=== PATIENT | male | born 1970 | race Caucasian/White ===

== ENCOUNTER 2017-03-30 22:32 | Emergency (ER) | payer SELFPAY ==
[2017-03-30] MEDS ORDERED: HYDROmorphone 1 MG/ML Syringe IVPUSH ONE (22:57)
[2017-03-30] MEDS ORDERED: Sodium Chloride 0.9% 1,000 ML IV SCH (23:00)
--- NOTE | 2017-03-30 23:03 | EDM.PDOC ---
ED HPI GENERAL MEDICAL PROBLEM - General Chief Complaint: Chest Pain Stated Complaint: [facility] Time Seen by Provider: 03/30/17 22:47 Source of Information: Reports: Patient History Limitations: Reports: No Limitations - History of Present Illness INITIAL COMMENTS - FREE TEXT/NARRATIVE: This is a 47-year-old male. He was out this evening having some alcohol and was going to eat when he had onset of left upper abdominal pain and back pain. He states he feels like the pain is sharp and it goes from his abdomen through to his back or possibly his back through to his abdomen. He's had some mild nausea but no vomiting. He has a history of pancreatitis about 5 years ago and he states he normally doesn't drink anymore but he had a few drinks tonight. He is rather anxious and flopping around on the bed complaining of abdominal pain. He is not willing to keep the EKG leads on his chest. He is not very descriptive with his pain and sort of points with his entire hand as to where he is hurting. He does not appear to be hurting on the right upper quadrant or the right abdomen or lower abdomen. Left Chest Pain Score (Numeric/FACES): 10 - Related Data Allergies Allergy/AdvReac Type Severity Reaction Status Date / Time No Known Allergies Allergy Verified 03/30/17 22:43 Home Meds: Home Meds Levothyroxine 150 mcg PO DAILY 03/30/17 [History] Lisinopril 10 mg PO DAILY 03/30/17 [History] Mirtazapine [Remeron] 30 mg PO DAILY 03/30/17 [History] metFORMIN [Glucophage XR] 500 mg PO DAILY 03/30/17 [History] Ondansetron [Zofran] 4 mg PO Q6H PRN #5 tab 03/31/17 [Rx] Past Medical History Cardiovascular History: Reports: Hypertension Psychiatric History: Reports: Anxiety Endocrine/Metabolic History: Reports: Diabetes, Type II, Hypothyroidism Social & Family History - Tobacco Use Smoking Status *Q: Current Every Day Smoker Years of Tobacco use: 29 Packs/Tins Daily: 0.5 - Caffeine Use Caffeine Use: Reports: Coffee - Recreational Drug Use Recreational Drug Use: No ED ROS GENERAL - Review of Systems Review Of Systems: See Below Constitutional: Denies: Fever, Chills HEENT: Reports: No Symptoms Respiratory: Denies: Shortness of Breath, Cough Cardiovascular: Reports: Chest Pain Endocrine: Reports: No Symptoms GI/Abdominal: Reports: Abdominal Pain, Nausea. Denies: Diarrhea, Vomiting : Reports: No Symptoms Musculoskeletal: Reports: Back Pain Skin: Reports: No Symptoms Neurological: Reports: No Symptoms Psychiatric: Reports: Agitation, Anxiety Hematologic/Lymphatic: Reports: No Symptoms ED EXAM, GENERAL - Physical Exam Exam: See Below Exam Limited By: No Limitations General Appearance: Alert, WD/WN, Moderate Distress Eye Exam: Bilateral Eye: Normal Inspection Ears: Normal External Exam Nose: Normal Inspection Throat/Mouth: Normal Inspection, Normal Lips, Normal Voice, No Airway Compromise Head: Normocephalic Neck: Supple Respiratory/Chest: No Respiratory Distress, Lungs Clear, Normal Breath Sounds, Other (Palpation of his ribs on the left side did not reveal any tenderness but he is somewhat apprehensive than just touching him sometimes will make him jerk away) Cardiovascular: Regular Rate, Rhythm, No Murmur GI/Abdominal: Soft, Other (Enlarged abdomen, he appears to be tender in the right upper quadrant though it is not consistent he is soft he has no guarding he has no rigidity no rebound noted though he does pull away from me pushing on his abdomen, he does not have any right upper quadrant tenderness or any lower abdominal tenderness on palpation, no masses no organs can be felt) Back Exam: Normal Inspection, Full Range of Motion, Other (He does appear to have some mid lower thoracic paraspinal muscle tenderness on the left side however it is not always consistent with palpation no midline spine pain no right sided back pain is noted and no lumbar pain is noted on palpation, he rolls and twisted the bed suggesting his back is not as tender possibly as with palpation and this could be from his abdomen radiating to his back) Extremities: Normal Inspection, Normal Range of Motion Neurological: Alert, Oriented Psychiatric: Anxious Skin Exam: Warm, Dry Course - Vital Signs Last Recorded V/S: Last Vital Signs Temp 97.8 F 03/30/17 22:36 Pulse 109 H 03/30/17 22:36 Resp 16 03/30/17 22:36 BP 122/77 03/30/17 23:04 Pulse Ox 94 L 03/30/17 22:36 - Orders/Labs/Meds Orders: Active Orders 24 hr Category Date Time Status EKG 12 Lead [EKG Documentation Completion] [RC] STAT Care 03/30/17 23:01 Active Sodium Chloride 0.9% [Normal Saline] 1,000 ml Med 03/30/17 23:00 Active IV ASDIRECTED Medication Orders Sodium Chloride (Normal Saline) 1,000 mls @ 1,000 mls/hr IV ASDIRECTED [facility] Labs: Laboratory Tests 03/30/17 03/30/17 03/30/17 Range/Units 23:18 23:18 23:18 WBC 7.43 (4.23-9.07) K/mm3 RBC 4.79 (4.63-6.08) M/mm3 Hgb 14.6 (13.7-17.5) gm/L Hct 41.6 (40.1-51.0) % MCV 86.8 (79.0-92.2) fl MCH 30.5 (25.7-32.2) pg MCHC 35.1 (32.2-35.5) g/dl RDW Std Deviation 41.5 (35.1-43.9) fL Plt Count 278 (163-337) K/mm3 MPV 8.6 L (9.4-12.3) fl Neut % (Auto) 34.8 (34.0-67.9) % Lymph % (Auto) 49.3 (21.8-53.1) % [place] % (Auto) 10.1 (5.3-12.2) % Eos % (Auto) 5.0 (0.8-7.0) Baso % (Auto) 0.5 (0.1-1.2) % Neut # (Auto) 2.59 (1.78-5.38) K/mm3 Lymph # (Auto) 3.66 H (1.32-3.57) K/mm3 [place] # (Auto) 0.75 (0.30-0.82) K/mm3 Eos # (Auto) 0.37 (0.04-0.54) K/mm3 Baso # (Auto) 0.04 (0.01-0.08) K/mm3 Sodium 145 (136-145) mEq/L Potassium 3.8 (3.5-5.1) mEq/L Chloride 109 H (98-107) mEq/L Carbon Dioxide 24 (21-32) mEq/L Anion Gap 15.8 H (5-15) BUN 8 (7-18) mg/dL Creatinine 0.9 (0.7-1.3) mg/dL Est Cr Clr Drug Dosing 108.98 mL/min Estimated GFR (MDRD) > 60 (>60) mL/min BUN/Creatinine Ratio 8.9 L (14-18) Glucose 210 H (74-106) mg/dL Calcium 8.3 L (8.5-10.1) mg/dL Total Bilirubin 0.2 (0.2-1.0) mg/dL AST 14 L (15-37) U/L ALT 29 (16-63) U/L Alkaline Phosphatase 117 H (46-116) U/L Troponin I 0.022 (0.00-0.056) ng/mL Total Protein 6.7 (6.4-8.2) g/dl Albumin 3.5 (3.4-5.0) g/dl Globulin 3.2 gm/dL Albumin/Globulin Ratio 1.1 (1-2) Lipase 158 (73-393) U/L Ethyl Alcohol 0.22 (0.00) gm% Meds: Medications Generic Name Dose Route Start Last Admin Trade Name Freq PRN Reason Stop Dose Admin Sodium Chloride 1,000 mls @ 1,000 mls/hr 03/30/17 23:00 Normal Saline IV ASDIRECTED [facility] Discontinued Medications Generic Name Dose Route Start Last Admin Trade Name Freq PRN Reason Stop Dose Admin Hydromorphone HCl 1 mg 03/30/17 22:57 03/30/17 23:16 Dilaudid IVPUSH 03/30/17 22:58 1 mg ONETIME ONE Administration Ondansetron HCl 4 mg 03/30/17 22:57 03/30/17 23:21 Zofran IVPUSH 03/30/17 22:58 4 mg ONETIME ONE Administration Pantoprazole Sodium 40 mg 03/30/17 23:06 03/30/17 23:19 Protonix Iv IVPUSH 03/30/17 23:07 40 mg ONETIME ONE Administration - Re-Assessments/Exams Free Text/Narrative Re-Assessment/Exam: 03/31/17 00:12 I spoke to the patient regarding his test results. I believe he has an alcoholic gastritis. His pancreas appears to be functioning normal without elevation of liver enzymes. I encouraged him not to drink anymore since his pancreatitis he now indicates was related to his drinking in the past. Departure - Departure Time of Disposition: 00:13 Disposition: Home, Self-Care 01 Condition: Fair Clinical Impression: Alcoholic gastritis Qualifiers: Chronicity: acute Gastritis bleeding: without bleeding Qualified Code(s): K29.20 - Alcoholic gastritis without bleeding Alcoholic intoxication Qualifiers: Complication of substance-induced condition: uncomplicated Qualified Code(s): F10.920 - Alcohol use, unspecified with intoxication, uncomplicated Abdominal pain Qualifiers: Abdominal location: left upper quadrant Qualified Code(s): R10.12 - Left upper quadrant pain Prescriptions: Ondansetron [Zofran] 4 mg PO Q6H PRN #5 tab PRN Reason: Nausea Referrals: PCP,None [Primary Care Provider] - Forms: ED Department Discharge Additional Instructions: Please do not drink alcohol since it is causing your abdominal discomfort and can also flare up any pancreatitis you might have had in the past, follow-up with your family doctor as needed, return to the ER if needed - My Orders Last 24 Hours: My Active Orders 03/30/17 23:00 Sodium Chloride 0.9% [Normal Saline] 1,000 ml IV ASDIRECTED 03/30/17 23:01 EKG 12 Lead [EKG Documentation Completion] [RC] STAT - Assessment/Plan Last 24 Hours: My Active Orders 03/30/17 23:00 Sodium Chloride 0.9% [Normal Saline] 1,000 ml IV ASDIRECTED 03/30/17 23:01 EKG 12 Lead [EKG Documentation Completion] [RC] STAT
[2017-03-30] MEDS ORDERED: Pantoprazole 40 MG Vial IVPUSH ONE (23:06)
[2017-03-30] MEDS: Ondansetron 4 MG/2 ML SDV IVPUSH ONE ×2 (23:20→23:21)
[2017-03-31] MEDS ORDERED: Ketorolac 60 MG/2 ML SDV IM ONE (00:17)
== END 2017-03-31 00:35 | disposition home or self-care (01) ==
LOC: JD.ED 22:32
DX: K29.20 Alcoholic gastritis without bleeding (principal); F10.920 Alcohol use, unspecified with intoxication, uncomplicated; F17.210 Nicotine dependence, cigarettes, uncomplicated; E11.9 Type 2 diabetes mellitus without complications; I10 Essential (primary) hypertension; Z79.84 Long term (current) use of oral hypoglycemic drugs; Z79.899 Other long term (current) drug therapy
CPT/HCPCS: 36415; 80053; 83690; 84484; 85025; 93005; 96374; 96375; 99285; C9113; G0480; J1170; J1885; J2405; 93010; 99284-25

== ENCOUNTER 2017-11-02 12:38 | Inpatient (IN) | payer SELFPAY ==
[2017-11-02] MEDS ORDERED: fentaNYL 100 MCG/2 ML SDV IVPUSH ONE ×2 (12:55→14:08)
[2017-11-02] MEDS ORDERED: Sodium Chloride 0.9% 1,000 ML IV ONE (12:55)
[2017-11-02] MEDS ORDERED: Pantoprazole 40 MG Vial IVPUSH ONE (12:57)
--- NOTE | 2017-11-02 13:07 | EDM.PDOC ---
ED HPI GENERAL MEDICAL PROBLEM - General Chief Complaint: Abdominal Pain Stated Complaint: [facility] Time Seen by Provider: 11/02/17 12:40 Source of Information: Reports: Patient, EMS History Limitations: Reports: No Limitations - History of Present Illness INITIAL COMMENTS - FREE TEXT/NARRATIVE: 47-year-old male presents vis [facility] for evaluation treatment of abdominal pain. Reports he began feeling nauseated no October 31. Patient reports that the abdominal pain began suddenly around 0300 this morning. Reports is located across his upper abdomen. He received 1 mg of Dilaudid from EMS. Continues to have significant pain despite the 1 mg of Dilaudid.. Patient reports that he has a past medical history of pancreatitis and diverticulitis. Denies any pain in his back. Reports associated symptoms of nausea, vomiting and diarrhea. Reports vomiting a yellowish green emesis. No blood in his emesis. Reports diarrhea, states he had 3 or 4 episodes of diarrhea today. No blood in his stool. Patient reports his current every day smoker. States that he drinks alcohol about 5 days a week. States normally drinks about 6-7 beers per day. Onset: Today Location: Reports: Abdomen. Denies: Chest Abdomen Pain Score (Numeric/FACES): 8 - Related Data Allergies Allergy/AdvReac Type Severity Reaction Status Date / Time No Known Allergies Allergy Verified 11/02/17 19:15 Home Meds: Home Meds Levothyroxine 150 mcg PO DAILY 03/30/17 [History] Lisinopril 20 mg PO DAILY 03/30/17 [History] Mirtazapine [Remeron] 30 mg PO DAILY 03/30/17 [History] metFORMIN [Glucophage XR] 500 mg PO DAILY 03/30/17 [History] Escitalopram [Lexapro] 20 mg PO DAILY 11/02/17 [History] Omeprazole 20 mg PO DAILY 11/02/17 [History] Past Medical History Cardiovascular History: Reports: Hypertension Psychiatric History: Reports: Anxiety Endocrine/Metabolic History: Reports: Diabetes, Type II, Hypothyroidism Social & Family History - Caffeine Use Caffeine Use: Reports: Coffee ED ROS GENERAL - Review of Systems Review Of Systems: See Below Constitutional: Reports: Malaise. Denies: Fever, Chills Cardiovascular: Denies: Chest Pain GI/Abdominal: Reports: Abdominal Pain (upper abdomen), Diarrhea, Nausea, Vomiting. Denies: Bloody Stool, Hematemesis Musculoskeletal: Denies: Back Pain ED EXAM, GI/ABD - Physical Exam Exam: See Below Exam Limited By: No Limitations General Appearance: Alert, WD/WN, Moderate Distress, Obese Ears: Normal External Exam Nose: Normal Inspection Throat/Mouth: Normal Inspection, Normal Lips, Normal Voice, No Airway Compromise Neck: Normal Inspection Respiratory/Chest: No Respiratory Distress, Lungs Clear, Normal Breath Sounds Cardiovascular: Normal Peripheral Pulses, Regular Rate, Rhythm, No Murmur GI/Abdominal Exam: Normal Bowel Sounds, Soft, Tender (upper abdomen, greatest in the epigastric area ) Neurological: Alert, Oriented, Normal Cognition Psychiatric: Normal Affect, Normal Mood Skin Exam: Warm, Dry, Normal Color EKG INTERPRETATION EKG Date: 11/02/17 Time: 17:45 Rhythm: NSR Rate (Beats/Min): 77 [place]: Normal P-Wave: Present QRS: Normal ST-T: Normal QT: Normal EKG Interpretation Comments: NSR at [address] segment changes. Reviewed by myself and Dr. Tran. Course - Vital Signs Last Recorded V/S: Last Vital Signs Temp 97.7 F 11/02/17 20:00 Pulse 70 11/02/17 20:00 Resp 18 11/02/17 20:00 BP 146/79 H 11/02/17 20:00 Pulse Ox 92 L 11/02/17 20:00 - Orders/Labs/Meds Orders: Active Orders 24 hr Category Date Time Status CIWAA Assessment [RC] Q1HR Care 11/02/17 17:31 Active Abdomen Ltd [US] Stat Exams 11/02/17 16:01 Taken Chest 1V Frontal [CR] Stat Exams 11/02/17 17:29 Taken UA W/MICROSCOPIC [URIN] Stat Lab 11/02/17 18:30 Ordered Sodium Chloride 0.9% [Saline Flush] Med 11/02/17 13:59 Active 10 ml FLUSH ONETIME PRN Medication Orders Acetaminophen (Tylenol) 650 mg PO Q4H PRN PRN Reason: Pain (Mild 1-3)/fever Albuterol/Ipratropium (Duoneb 3.0-0.5 Mg/3 Ml) 3 ml NEB Q4H PRN PRN Reason: Shortness Of Breath/wheezing Bisacodyl (Dulcolax) 5 mg PO DAILY PRN PRN Reason: Constipation Citalopram Hydrobromide (Celexa) 40 mg PO DAILY [facility] Docusate Sodium (Colace) 100 mg PO BID PRN PRN Reason: Constipation Hydralazine HCl (Apresoline) 20 mg IVPUSH Q4H PRN PRN Reason: Hypertension Hydromorphone HCl (Dilaudid) 0.5 mg IVPUSH Q2H PRN PRN Reason: Pain (severe 7-10) Last Admin: 11/02/17 20:46 Dose: 0.5 mg Sodium Chloride (Normal Saline) 1,000 mls @ 125 mls/hr IV ASDIRECTED [facility] Last Admin: 11/02/17 19:33 Dose: 125 mls/hr Insulin Aspart (Novolog) 0 unit SUBCUT QIDACANDBED [facility]; Protocol Last Admin: 11/02/17 21:01 Dose: 1 unit Levothyroxine Sodium (Levothyroxine) 150 mcg PO DAILY [facility] Lisinopril (Prinivil) 20 mg PO DAILY [facility] Magnesium Hydroxide (Milk Of Magnesia) 30 ml PO Q12H PRN PRN Reason: Constipation Mirtazapine (Remeron) 30 mg PO BEDTIME [facility] Last Admin: 11/02/17 20:46 Dose: 30 mg Nicotine (Habitrol) 7 mg TRDERM DAILY [facility] Last Admin: 11/02/17 20:03 Dose: Not Given Ondansetron HCl (Zofran Odt) 4 mg PO Q4H PRN PRN Reason: nausea, able to take PO Ondansetron HCl (Zofran) 4 mg IV Q4H PRN PRN Reason: Nausea/Vomiting Last Admin: 11/02/17 20:51 Dose: 4 mg Oxycodone HCl (Oxycodone) 5 mg PO Q4H PRN PRN Reason: Pain (moderate 4-6) Last Admin: 11/02/17 19:31 Dose: 5 mg Pantoprazole Sodium (Protonix) 40 mg PO DAILY@0700 [facility] Polyethylene Glycol (Miralax) 17 gm PO DAILY PRN PRN Reason: Constipation Senna/Docusate Sodium (Senna Plus) 1 tab PO BID PRN PRN Reason: Constipation Sodium Chloride (Saline Flush) 10 ml FLUSH ONETIME PRN PRN Reason: IV FLUSH Last Admin: 11/02/17 14:20 Dose: 10 ml Temazepam (Restoril) 7.5 mg PO BEDTIME PRN PRN Reason: Sleep Labs: Laboratory Tests 11/02/17 11/02/17 11/02/17 Range/Units 13:22 13:22 13:22 WBC 6.66 (4.23-9.07) K/mm3 RBC 4.93 (4.63-6.08) M/mm3 Hgb 15.5 (13.7-17.5) gm/L Hct 44.6 (40.1-51.0) % MCV 90.5 (79.0-92.2) fl MCH 31.4 (25.7-32.2) pg MCHC 34.8 (32.2-35.5) g/dl RDW Std Deviation 45.4 H (35.1-43.9) fL Plt Count 261 (163-337) K/mm3 MPV 8.9 L (9.4-12.3) fl Neutrophils % (Manual) 69 H (40-60) % Band Neutrophils % 0 (0-10) % Lymphocytes % (Manual) 26 (20-40) % Atypical Lymphs % 0 % Monocytes % (Manual) 4 (2-10) % Eosinophils % (Manual) 1 (0.8-7.0) % Basophils % (Manual) 0 L (0.2-1.2) Platelet Estimate Adequate RBC Morph Comment Normal Sodium 134 L (136-145) mEq/L Potassium 4.0 (3.5-5.1) mEq/L Chloride 99 (98-107) mEq/L Carbon Dioxide 25 (21-32) mEq/L Anion Gap 14.0 (5-15) BUN 10 (7-18) mg/dL Creatinine 0.8 (0.7-1.3) mg/dL Est Cr Clr Drug Dosing 126.23 mL/min Estimated GFR (MDRD) > 60 (>60) mL/min BUN/Creatinine Ratio 12.5 L (14-18) Glucose 381 H (74-106) mg/dL Calcium 8.8 (8.5-10.1) mg/dL Total Bilirubin 1.3 H (0.2-1.0) mg/dL AST 402 H (15-37) U/L ALT 602 H (16-63) U/L Alkaline Phosphatase 154 H (46-116) U/L Troponin I 0.032 (0.00-0.056) ng/mL C-Reactive Protein < 0.2 (<1.0) mg/dL Total Protein 7.2 (6.4-8.2) g/dl Albumin 3.7 (3.4-5.0) g/dl Globulin 3.5 gm/dL Albumin/Globulin Ratio 1.1 (1-2) Lipase 1090 H (73-393) U/L Ethyl Alcohol 0.01 (0.00) gm% Meds: Medications Generic Name Dose Route Start Last Admin Trade Name Freq PRN Reason Stop Dose Admin Acetaminophen 650 mg 11/02/17 18:30 Tylenol PO Q4H PRN Pain (Mild 1-3)/fever Albuterol/Ipratropium 3 ml 11/02/17 18:30 Duoneb 3.0-0.5 Mg/3 Ml NEB Q4H PRN Shortness Of Breath/wheezing Bisacodyl 5 mg 11/02/17 18:30 Dulcolax PO DAILY PRN Constipation Citalopram Hydrobromide 40 mg 11/03/17 09:00 Celexa PO DAILY [facility] Docusate Sodium 100 mg 11/02/17 18:30 Colace PO BID PRN Constipation Hydralazine HCl 20 mg 11/02/17 18:59 Apresoline IVPUSH Q4H PRN Hypertension Hydromorphone HCl 0.5 mg 11/02/17 18:30 11/02/17 20:46 Dilaudid IVPUSH 0.5 mg Q2H PRN Administration Pain (severe 7-10) Sodium Chloride 1,000 mls @ 125 mls/hr 11/02/17 18:30 11/02/17 19:33 Normal Saline IV 125 mls/hr ASDIRECTED [facility] Administration Insulin Aspart 0 unit 11/02/17 22:00 11/02/17 21:01 Novolog SUBCUT 1 unit QIDACANDBED [facility] Administration Protocol Levothyroxine Sodium 150 mcg 11/03/17 09:00 Levothyroxine PO DAILY [facility] Lisinopril 20 mg 11/03/17 09:00 Prinivil PO DAILY [facility] Magnesium Hydroxide 30 ml 11/02/17 18:30 Milk Of Magnesia PO Q12H PRN Constipation Mirtazapine 30 mg 11/02/17 21:00 11/02/17 20:46 Remeron PO 30 mg BEDTIME [facility] Administration Nicotine 7 mg 11/02/17 18:45 11/02/17 20:03 Habitrol TRDERM Not Given DAILY [facility] Ondansetron HCl 4 mg 11/02/17 18:30 Zofran Odt PO Q4H PRN nausea, able to take PO Ondansetron HCl 4 mg 11/02/17 18:30 11/02/17 20:51 Zofran IV 4 mg Q4H PRN Administration Nausea/Vomiting Oxycodone HCl 5 mg 11/02/17 18:30 11/02/17 19:31 Oxycodone PO 5 mg Q4H PRN Administration Pain (moderate 4-6) Pantoprazole Sodium 40 mg 11/03/17 07:00 Protonix PO DAILY@0700 [facility] Polyethylene Glycol 17 gm 11/02/17 18:30 Miralax PO DAILY PRN Constipation Senna/Docusate Sodium 1 tab 11/02/17 18:30 Senna Plus PO BID PRN Constipation Sodium Chloride 10 ml 11/02/17 13:59 11/02/17 14:20 Saline Flush FLUSH 10 ml ONETIME PRN Administration IV FLUSH Temazepam 7.5 mg 11/02/17 18:30 Restoril PO BEDTIME PRN Sleep Discontinued Medications Generic Name Dose Route Start Last Admin Trade Name Freq PRN Reason Stop Dose Admin Diatrizoate Meglum/Diatrizoate Sod 90 ml 11/02/17 13:59 11/02/17 14:19 Gastrografin 37% PO 11/02/17 14:00 90 ml ONETIME ONE Administration Fentanyl 100 mcg 11/02/17 12:55 11/02/17 13:07 Sublimaze IVPUSH 11/02/17 12:56 100 mcg ONETIME ONE Administration Fentanyl 50 mcg 11/02/17 14:08 11/02/17 14:12 Sublimaze IVPUSH 11/02/17 14:09 50 mcg ONETIME ONE Administration Hydromorphone HCl 1 mg 11/02/17 15:59 11/02/17 16:08 Dilaudid IVPUSH 11/02/17 16:00 1 mg ONETIME ONE Administration Hydromorphone HCl 1 mg 11/02/17 18:09 11/02/17 18:19 Dilaudid IVPUSH 11/02/17 18:10 1 mg ONETIME ONE Administration Sodium Chloride 1,000 mls @ 999 mls/hr 11/02/17 12:55 11/02/17 13:06 Normal Saline IV 11/02/17 13:55 999 mls/hr ONETIME ONE Administration Iopamidol 125 ml 11/02/17 13:59 11/02/17 14:19 Isovue-300 (61%) IVPUSH 11/02/17 14:00 125 ml ONETIME ONE Administration Metformin HCl 500 mg 11/03/17 09:00 Glucophage PO DAILY [facility] Ondansetron HCl 4 mg 11/02/17 16:01 11/02/17 16:06 Zofran IVPUSH 11/02/17 16:02 4 mg ONETIME ONE Administration Ondansetron HCl Confirm 11/02/17 16:03 11/02/17 16:09 Zofran Administered 11/02/17 16:04 Not Given Dose 4 mg .ROUTE .STK-MED ONE Ondansetron HCl 4 mg 11/02/17 18:09 11/02/17 18:19 Zofran IVPUSH 11/02/17 18:10 4 mg ONETIME ONE Administration Pantoprazole Sodium 40 mg 11/02/17 12:57 11/02/17 13:09 Protonix Iv IVPUSH 11/02/17 12:58 40 mg ONETIME ONE Administration - Radiology Interpretation Free Text/Narrative:: CT abdomen and pelvis Technique: Multiple axial sections were obtained from above the dome of the diaphragm inferiorly through the pubic symphysis. Intravenous and oral contrast was utilized. Delayed images were obtained through the bladder. Comparison: Prior CT abdomen and pelvis exam of 04/13/12. Findings: Visualized lung bases show nothing acute. Liver shows severe fatty infiltration. Spleen appears within normal limits. Adrenal glands show no nodule. Pancreas is within normal limits. Gallbladder shows small gallstones. Kidneys show symmetric contrast enhancement. Cyst identified within the mid left kidney measuring approximately 2.4 cm. Kidneys are otherwise normal in appearance. Aorta shows no aneurysmal dilatation. No retroperitoneal adenopathy is seen. Appendix is seen which is normal in size. No mesenteric abnormalities are seen. Sigmoid diverticuli are seen without evidence of diverticulitis. Delayed images show contrast within the distal ureters and within the bladder. Bone window settings were reviewed which show mild scattered degenerative change throughout the spine. Impression: 1. Severe fatty infiltration within the liver. 2. Small gallstones within the gallbladder. 3. Other incidental findings as noted above. Nothing acute is appreciated. RUQ abd ultrasound impression per vrad: hepatomegaly with moderal hepatic steatosis. Cholelithiasis. 7mm common duct dilation. chest xray 1 view shows no acute intrathoracic process. Poor inspiratory effort. - Re-Assessments/Exams Free Text/Narrative Re-Assessment/Exam: 11/02/17 18:05 Reviewed the labs and imaging with the patient. decided to go ahead and get an ultrasound to ensure that this was not gallstone pancreatitis. Most likely is alcohol induced pancreatitis. Patient is too ill to go home. Multi-controlling pain. He has had multiple dosages of fentanyl and Dilaudid but continues to have significant pain. discussed the case with Dr. Loomis, hospitalist visual education director. She agrees to admission. He'll go to the ICU. We did obtain a EKG, troponin and chest x-ray which were all within normal limits. Departure - Departure Time of Disposition: 18:00 Disposition: Admitted As Inpatient 64 Condition: Poor Clinical Impression: Pancreatitis Abdominal pain Qualifiers: Abdominal location: left upper quadrant Qualified Code(s): R10.12 - Left upper quadrant pain - Discharge Information - My Orders Last 24 Hours: My Active Orders 11/02/17 13:59 Sodium Chloride 0.9% [Saline Flush] 10 ml FLUSH ONETIME PRN 11/02/17 16:01 Abdomen Ltd [US] Stat 11/02/17 17:29 Chest 1V Frontal [CR] Stat 11/02/17 17:31 CIWAA Assessment [RC] Q1HR 11/02/17 18:30 UA W/MICROSCOPIC [URIN] Stat - Assessment/Plan Last 24 Hours: My Active Orders 11/02/17 13:59 Sodium Chloride 0.9% [Saline Flush] 10 ml FLUSH ONETIME PRN 11/02/17 16:01 Abdomen Ltd [US] Stat 11/02/17 17:29 Chest 1V Frontal [CR] Stat 11/02/17 17:31 CIWAA Assessment [RC] Q1HR 11/02/17 18:30 UA W/MICROSCOPIC [URIN] Stat
[2017-11-02] MEDS ORDERED: Sodium Chloride 0.9% 10 ML Syringe FLUSH PRN (13:59)
[2017-11-02] MEDS ORDERED: Iopamidol 612 MG/ML 150 ML Bottle IVPUSH ONE (13:59)
[2017-11-02] MEDS ORDERED: Diatrizoate Meglumine/Diatrizoate Sodium 37% 120 ML Bottle PO ONE (13:59)
--- NOTE | 2017-11-02 14:50 | CT ---
CT abdomen and pelvis Technique: Multiple axial sections were obtained from above the dome of the diaphragm inferiorly through the pubic symphysis. Intravenous and oral contrast was utilized. Delayed images were obtained through the bladder. Comparison: Prior CT abdomen and pelvis exam of 04/13/12. Findings: Visualized lung bases show nothing acute. Liver shows severe fatty infiltration. Spleen appears within normal limits. Adrenal glands show no nodule. Pancreas is within normal limits. Gallbladder shows small gallstones. Kidneys show symmetric contrast enhancement. Cyst identified within the mid left kidney measuring approximately 2.4 cm. Kidneys are otherwise normal in appearance. Aorta shows no aneurysmal dilatation. No retroperitoneal adenopathy is seen. Appendix is seen which is normal in size. No mesenteric abnormalities are seen. Sigmoid diverticuli are seen without evidence of diverticulitis. Delayed images show contrast within the distal ureters and within the bladder. Bone window settings were reviewed which show mild scattered degenerative change throughout the spine. Impression: 1. Severe fatty infiltration within the liver. 2. Small gallstones within the gallbladder. 3. Other incidental findings as noted above. Nothing acute is appreciated. Diagnostic code #3
[2017-11-02] MEDS ORDERED: HYDROmorphone 0.5 MG/0.5 ML SYRINGE IVPUSH ONE ×2 (15:59→18:09)
[2017-11-02] MEDS ORDERED: Ondansetron 4 MG/2 ML SDV IVPUSH ONE ×2 (16:01→18:09)
[2017-11-02] MEDS ORDERED: Ondansetron 4 MG/2 ML SDV ONE (16:03)
--- NOTE | 2017-11-02 18:27 | PCM.HP ---
H&P History of Present Illness - General Date of Service: 11/02/17 Admit Problem/Dx: Admission Diagnosis/Problem Admission Diagnosis/Problem Pancreatitis Source of Information: Patient, Old Records, Provider History Limitations: Reports: No Limitations - History of Present Illness Initial Comments - Free Text/Narative: This is a 47 y/o male with PMHx significant for previous episodes of pancreatitis, hypertension, anxiety, Type 2 Diabetes, and hypothyroidism who comes in by ambulance for abdominal pain and N/V. His work-up in the ED included CBC that was remarkable for neutrophils 69%. CMP remarkable for Na 134, glucose 381, Tbili 1.3, AST 402, ALT 602, alk phos 154. Lipase was elevated at 1090. Blood alcohol level 0.01. UA pending. CT abdomen/ pelvis w/o contrast ordered in ED read as severe fatty infiltration within the liver, small gallstones within the gallblader. Abdominal ultrasound also ordered and read is pending. Patient received NS bolus in ED. CXR ordered in ED with read pending. Patient reports that his pain began on the 31 of October. He admits to having had a couple of drinks that day. This morning he woke up around 3am and was in excrutiating pain. He describes the pain as "a band of pain below my ribs that goes across my abdomen to my back". He reports the pain is similar to his previous episodes of pancreatitis but feels this pain is occupying a larger area. He also reports significant N/V and loose, greenish BMs for past several days. He is subsequently admitted to ICU. He is a current smoker. He is a full code. PCP is Dr. Rubio Bhardwaj Jr. Abdomen Pain Score (Numeric/FACES): 8 - Related Data Allergies/Adverse Reactions: Allergies Allergy/AdvReac Type Severity Reaction Status Date / Time No Known Allergies Allergy Verified 11/02/17 19:15 Home Medications: Home Meds Levothyroxine 150 mcg PO DAILY 03/30/17 [History] Lisinopril 20 mg PO DAILY 03/30/17 [History] Mirtazapine [Remeron] 30 mg PO DAILY 03/30/17 [History] metFORMIN [Glucophage XR] 500 mg PO DAILY 03/30/17 [History] Escitalopram [Lexapro] 20 mg PO DAILY 11/02/17 [History] Omeprazole 20 mg PO DAILY 11/02/17 [History] Past Medical History Cardiovascular History: Reports: Hypertension Gastrointestinal History: Reports: Diverticulosis, Pancreatitis Psychiatric History: Reports: Anxiety Endocrine/Metabolic History: Reports: Diabetes, Type II, Hypothyroidism - Past Surgical History HEENT Surgical History: Reports: Tonsillectomy Musculoskeletal Surgical History: Reports: Arthroscopic Procedure Social & Family History - Tobacco Use Smoking Status *Q: Current Every Day Smoker Years of Tobacco use: 20 Packs/Tins Daily: 0.5 - Caffeine Use Caffeine Use: Reports: Coffee - Alcohol Use Days Per Week of Alcohol Use: 5 Number of Drinks Per Day: 2 Total Drinks Per Week: 10 - Recreational Drug Use Recreational Drug Use: No H&P Review of Systems - Review of Systems: Review Of Systems: See Below General: Reports: Diaphoresis. Denies: Fever, Chills HEENT: Reports: No Symptoms. Denies: Sinus Congestion, Sore Throat Pulmonary: Reports: No Symptoms. Denies: Shortness of Breath, Cough Cardiovascular: Reports: No Symptoms. Denies: Chest Pain, Palpitations, Edema Gastrointestinal: Reports: Abdominal Pain (Patient reports as severe pain ), Anorexia, Diarrhea Genitourinary: Reports: No Symptoms. Denies: Dysuria, Frequency, Burning Musculoskeletal: Reports: No Symptoms. Denies: Joint Pain Skin: Reports: No Symptoms Psychiatric: Reports: No Symptoms Neurological: Reports: No Symptoms Hematologic/Lymphatic: Reports: No Symptoms Immunologic: Reports: No Symptoms Exam - Exam Exam: See Below - Vital Signs Vital Signs: Last Vital Signs Temp 98.0 F 11/02/17 12:49 Pulse 102 H 11/02/17 12:49 Resp 16 11/02/17 12:49 BP 154/110 H 11/02/17 12:49 Pulse Ox 96 11/02/17 12:49 Weight: 260 lb - Exam Quality Assessment: No: Supplemental Oxygen General: Alert, Oriented, Cooperative, Mild Distress, Other (Obese ) HEENT: Nares Patent, Pupils Equal, Pupils Reactive Neck: Supple, Trachea Midline. No: Lymphadenopathy Lungs: Clear to Auscultation, Normal Respiratory Effort Cardiovascular: Regular Rhythm, Normal S1, Normal S2, Tachycardia GI/Abdominal Exam: Normal Bowel Sounds, Soft, No Distention, Tender (diffuse ) (Male) Exam: Deferred Rectal (Males) Exam: Deferred Back Exam: Normal Inspection, Full Range of Motion Extremities: Normal Inspection, Normal Range of Motion, Non-Tender, No Pedal Edema Peripheral Pulses: 1+: Posterior Tibial (L), Posterior Tibial (R), Dorsalis Pedis (L), Dorsalis Pedis (R), 2+: Radial (L), Radial (R) Skin: Warm, Dry, Intact, Other (Mildly sweaty ) Neurological: Cranial Nerves Intact (grossly ), Strength Equal Bilateral Neuro Extensive - Mental Status: Alert, Oriented x3, Normal Mood/Affect, Normal Cognition, Memory Intact Psychiatric: Alert, Normal Affect, Normal Mood - Patient Data Lab Results Last 24 hrs: Laboratory Results - last 24 hr 11/02/17 11/02/17 11/02/17 Range/Units 13:22 13:22 13:22 WBC 6.66 (4.23-9.07) K/mm3 RBC 4.93 (4.63-6.08) M/mm3 Hgb 15.5 (13.7-17.5) gm/L Hct 44.6 (40.1-51.0) % MCV 90.5 (79.0-92.2) fl MCH 31.4 (25.7-32.2) pg MCHC 34.8 (32.2-35.5) g/dl RDW Std Deviation 45.4 H (35.1-43.9) fL Plt Count 261 (163-337) K/mm3 MPV 8.9 L (9.4-12.3) fl Neutrophils % (Manual) 69 H (40-60) % Band Neutrophils % 0 (0-10) % Lymphocytes % (Manual) 26 (20-40) % Atypical Lymphs % 0 % Monocytes % (Manual) 4 (2-10) % Eosinophils % (Manual) 1 (0.8-7.0) % Basophils % (Manual) 0 L (0.2-1.2) Platelet Estimate Adequate RBC Morph Comment Normal Sodium 134 L (136-145) mEq/L Potassium 4.0 (3.5-5.1) mEq/L Chloride 99 (98-107) mEq/L Carbon Dioxide 25 (21-32) mEq/L Anion Gap 14.0 (5-15) BUN 10 (7-18) mg/dL Creatinine 0.8 (0.7-1.3) mg/dL Est Cr Clr Drug Dosing 126.23 mL/min Estimated GFR (MDRD) > 60 (>60) mL/min BUN/Creatinine Ratio 12.5 L (14-18) Glucose 381 H (74-106) mg/dL Calcium 8.8 (8.5-10.1) mg/dL Total Bilirubin 1.3 H (0.2-1.0) mg/dL AST 402 H (15-37) U/L ALT 602 H (16-63) U/L Alkaline Phosphatase 154 H (46-116) U/L Troponin I 0.032 (0.00-0.056) ng/mL C-Reactive Protein < 0.2 (<1.0) mg/dL Total Protein 7.2 (6.4-8.2) g/dl Albumin 3.7 (3.4-5.0) g/dl Globulin 3.5 gm/dL Albumin/Globulin Ratio 1.1 (1-2) Lipase 1090 H (73-393) U/L Ethyl Alcohol 0.01 (0.00) gm% Result Diagrams: 11/02/17 13:22 11/02/17 13:22 Problem List Initiated/Reviewed/Updated: Yes Orders Last 24hrs: Active Orders 24 hr Category Date Time Status Patient Status [ADT] Routine ADT 11/02/17 18:08 Active CIWAA Assessment [RC] ASDIRECTED Care 11/02/17 17:31 Active EKG 12 Lead [EKG Documentation Completion] [RC] STAT Care 11/02/17 17:29 Active Abdomen Ltd [US] Stat Exams 11/02/17 16:01 Taken Chest 1V Frontal [CR] Stat Exams 11/02/17 17:29 Taken UA W/MICROSCOPIC [URIN] Stat Lab 11/02/17 12:56 Ordered Sodium Chloride 0.9% [Saline Flush] Med 11/02/17 13:59 Active 10 ml FLUSH ONETIME PRN Medication Orders Sodium Chloride (Saline Flush) 10 ml FLUSH ONETIME PRN PRN Reason: IV FLUSH Last Admin: 11/02/17 14:20 Dose: 10 ml Assessment/Plan Comment:: A/P Acute: Lipase elevation * Risk factors: previous episodes of pancreatitis, suspected alcohol abuse * Lipase 1090 in ED * CT of abdomen/pelvis with contrast read as severe fatty infiltration within the liver, small gallstones within the gallbladder * Suspect pancreatitis with patient's previous episodes of pancreatitis and alcohol use 2 days ago * [place]'s criteria: 2 points, Severe pancreatitis unlikely with 1% predicted mortality at this time; however, with patient's hx of prior pancreatitis, ICU admission is warranted * Abdominal ultrasound also ordered and read is pending * Received IVF NS bolus in ED; will order NS at 125 ml/hr * Pain management as follows: * Dilaudid 0.5 mg IV q 2 hr prn severe pain * Oxycodone 5 mg po q 4 hr prn moderate pain * Normal white count * NPO diet except for meds/ice chips * Consult to dietitian for low fat/diabetic diet education * GI follow-up after discharge Hyperglycemia * 381 in ED * Patient is a type 2 diabetic * Takes Metformin 500 mg po daily --> CT performed today, will hold metformin x 48 hours * Reports he has not had his Hgb A1c checked in over 1 year and states that at that time it was 5.1 or 5.9 * Will order AccuChecks QID and low dose SSI * Monitor Hypertension * BP elevated in ED --> likely related to pain * Patient reports his lisinopril was increased to 20 mg from 10 mg daily last week, will continue during admission * Hydralazine 20 mg IV q 4 hr if BP >140/90 * Monitor Hyponatremia * Na 134 in ED * Likely related to poor intakes * Monitor Suspected alcohol abuse * Patient reports history of heavy alcohol use in his past but declines this being an issue currently; per records, patient was in ED March 2017 with blood alcohol level of 0.22 * He declined speaking with someone regarding substance abuse * CIWAA ordered Chronic: Previous episodes of pancreatitis Hypertension Anxiety Type 2 Diabetes Hypothyroidism Plan: Admitted from ED to ICU CIWAA Nicotine patch Other orders as indicated above CM/SW for discharge planning Routine AM labs Continue home meds NPO diet except for meds/ice chips DVT Prophylaxis: GI Prophylaxis: Omeprazole Code Status: DNR/DNI PCP: Dr. Rubio Bhardwaj, Jr
[2017-11-02] MEDS ORDERED: Temazepam 7.5 MG Cap PO PRN (18:30)
[2017-11-02] MEDS ORDERED: Docusate Sodium 100 MG Cap PO PRN (18:30)
[2017-11-02] MEDS ORDERED: Bisacodyl 5 MG Tab PO PRN (18:30)
[2017-11-02] MEDS ORDERED: Polyethylene Glycol 3350 Powder 17 GM Packet PO PRN (18:30)
[2017-11-02] MEDS ORDERED: Ondansetron 4 MG Tab.DIS PO PRN (18:30)
[2017-11-02] MEDS ORDERED: Acetaminophen 325 MG Tab PO PRN (18:30)
[2017-11-02] MEDS ORDERED: Albuterol/Ipratropium 3.0-0.5 MG/3 ML Neb Soln NEB PRN (18:30)
[2017-11-02] MEDS ORDERED: Magnesium Hydroxide 400 MG/5 ML Susp 30 ML Cup PO PRN (18:30)
[2017-11-02] MEDS: oxyCODONE 5 MG Tab PO PRN (19:31)
[2017-11-02] MEDS: Sodium Chloride 0.9% 1,000 ML IV SCH (19:33)
[2017-11-02] MEDS: Nicotine 7 MG/24 Hr Patch TRDERM SCH (20:03)
[2017-11-02] MEDS: HYDROmorphone 0.5 MG/0.5 ML SYRINGE IVPUSH PRN (20:46)
[2017-11-02] MEDS: Mirtazapine 30 MG Tab PO SCH (20:46)
[2017-11-02] MEDS: Ondansetron 4 MG/2 ML SDV IV PRN (20:51)
[2017-11-02] MEDS: Insulin Aspart 100 Units/ML 3 ML Pen SUBCUT SCH (21:01)
[2017-11-03] MEDS: HYDROmorphone 0.5 MG/0.5 ML SYRINGE IVPUSH PRN ×5 (00:14→08:55)
[2017-11-03] MEDS: hydrALAZINE 20 MG/ML SDV IVPUSH PRN ×2 (00:17→09:02)
[2017-11-03] MEDS: oxyCODONE 5 MG Tab PO PRN (01:44)
[2017-11-03] MEDS: Ondansetron 4 MG/2 ML SDV IV PRN ×2 (01:44→09:00)
[2017-11-03] MEDS: Sodium Chloride 0.9% 1,000 ML IV SCH ×3 (02:45→18:43)
[2017-11-03] MEDS: Insulin Aspart 100 Units/ML 3 ML Pen SUBCUT SCH ×4 (06:53→22:04)
[2017-11-03] MEDS ORDERED: Pantoprazole 40 MG Tab.CR PO SCH (07:00)
[2017-11-03] MEDS: Levothyroxine 150 MCG Tab PO SCH (08:58)
[2017-11-03] MEDS ORDERED: metFORMIN 500 MG Tab PO SCH (09:00)
[2017-11-03] MEDS: Lisinopril 20 MG Tab PO SCH (09:05)
[2017-11-03] MEDS: Citalopram 20 MG Tab PO SCH (09:06)
[2017-11-03] MEDS: Nicotine 7 MG/24 Hr Patch TRDERM SCH (09:06)
--- NOTE | 2017-11-03 09:06 | PCM.PN ---
- General Info Date of Service: 11/03/17 Functional Status: Reports: Pain Controlled, Ambulating, Urinating - Review of Systems General: Reports: No Symptoms HEENT: Reports: No Symptoms Pulmonary: Reports: No Symptoms Cardiovascular: Reports: No Symptoms Gastrointestinal: Reports: No Symptoms Genitourinary: Reports: No Symptoms Musculoskeletal: Reports: No Symptoms Skin: Reports: No Symptoms Neurological: Reports: No Symptoms Psychiatric: Reports: No Symptoms - Patient Data Vitals - Most Recent: Last Vital Signs Temp 36.6 C 11/03/17 08:00 Pulse 96 11/03/17 04:00 Resp 18 11/03/17 08:00 BP 149/99 H 11/03/17 08:00 Pulse Ox 95 11/03/17 08:00 Weight - Most Recent: 124.33 kg I&O - Last 24 Hours: Intake & Output 11/02/17 11/03/17 11/03/17 22:59 06:59 14:59 Intake Total 1364 Output Total 500 Balance 864 Lab Results Last 24 Hours: Laboratory Results - last 24 hr 11/02/17 11/02/17 11/02/17 Range/Units 13:22 13:22 13:22 WBC 6.66 (4.23-9.07) K/mm3 RBC 4.93 (4.63-6.08) M/mm3 Hgb 15.5 (13.7-17.5) gm/L Hct 44.6 (40.1-51.0) % MCV 90.5 (79.0-92.2) fl MCH 31.4 (25.7-32.2) pg MCHC 34.8 (32.2-35.5) g/dl RDW Std Deviation 45.4 H (35.1-43.9) fL Plt Count 261 (163-337) K/mm3 MPV 8.9 L (9.4-12.3) fl Neut % (Auto) (34.0-67.9) % Lymph % (Auto) (21.8-53.1) % [place] % (Auto) (5.3-12.2) % Eos % (Auto) (0.8-7.0) Baso % (Auto) (0.1-1.2) % Neut # (Auto) (1.78-5.38) K/mm3 Lymph # (Auto) (1.32-3.57) K/mm3 [place] # (Auto) (0.30-0.82) K/mm3 Eos # (Auto) (0.04-0.54) K/mm3 Baso # (Auto) (0.01-0.08) K/mm3 Neutrophils % (Manual) 69 H (40-60) % Band Neutrophils % 0 (0-10) % Lymphocytes % (Manual) 26 (20-40) % Atypical Lymphs % 0 % Monocytes % (Manual) 4 (2-10) % Eosinophils % (Manual) 1 (0.8-7.0) % Basophils % (Manual) 0 L (0.2-1.2) Platelet Estimate Adequate RBC Morph Comment Normal Sodium 134 L (136-145) mEq/L Potassium 4.0 (3.5-5.1) mEq/L Chloride 99 (98-107) mEq/L Carbon Dioxide 25 (21-32) mEq/L Anion Gap 14.0 (5-15) BUN 10 (7-18) mg/dL Creatinine 0.8 (0.7-1.3) mg/dL Est Cr Clr Drug Dosing 126.23 mL/min Estimated GFR (MDRD) > 60 (>60) mL/min BUN/Creatinine Ratio 12.5 L (14-18) Glucose 381 H (74-106) mg/dL POC Glucose (70-105) mg/dL Calcium 8.8 (8.5-10.1) mg/dL Total Bilirubin 1.3 H (0.2-1.0) mg/dL AST 402 H (15-37) U/L ALT 602 H (16-63) U/L Alkaline Phosphatase 154 H (46-116) U/L Troponin I 0.032 (0.00-0.056) ng/mL C-Reactive Protein < 0.2 (<1.0) mg/dL Total Protein 7.2 (6.4-8.2) g/dl Albumin 3.7 (3.4-5.0) g/dl Globulin 3.5 gm/dL Albumin/Globulin Ratio 1.1 (1-2) Lipase 1090 H (73-393) U/L Urine Color (Yellow) Urine Appearance (Clear) Urine pH (5.0-8.0) Ur Specific [place] (1.005-1.030) Urine Protein (Negative) Urine Glucose (UA) (Negative) Urine Ketones (Negative) Urine Occult Blood (Negative) Urine Nitrite (Negative) Urine Bilirubin (Negative) Urine Urobilinogen (0.2-1.0) Ur Leukocyte Esterase (Negative) Urine RBC (0-5) /hpf Urine WBC (0-5) /hpf Ur Epithelial Cells (0-5) /hpf Urine Bacteria (FEW) /hpf Urine Mucus (FEW) /hpf Ethyl Alcohol 0.01 (0.00) gm% 11/02/17 11/02/17 11/03/17 Range/Units 18:30 20:39 05:35 WBC 9.72 H (4.23-9.07) K/mm3 RBC 4.48 L (4.63-6.08) M/mm3 Hgb 14.2 (13.7-17.5) gm/L Hct 41.7 (40.1-51.0) % MCV 93.1 H (79.0-92.2) fl MCH 31.7 (25.7-32.2) pg MCHC 34.1 (32.2-35.5) g/dl RDW Std Deviation 46.2 H (35.1-43.9) fL Plt Count 257 (163-337) K/mm3 MPV 9.2 L (9.4-12.3) fl Neut % (Auto) 75.7 H (34.0-67.9) % Lymph % (Auto) 16.4 L (21.8-53.1) % Sharkey % (Auto) 6.6 (5.3-12.2) % Eos % (Auto) 1.0 (0.8-7.0) Baso % (Auto) 0.2 (0.1-1.2) % Neut # (Auto) 7.36 H (1.78-5.38) K/mm3 Lymph # (Auto) 1.59 (1.32-3.57) K/mm3 Sharkey # (Auto) 0.64 (0.30-0.82) K/mm3 Eos # (Auto) 0.10 (0.04-0.54) K/mm3 Baso # (Auto) 0.02 (0.01-0.08) K/mm3 Neutrophils % (Manual) (40-60) % Band Neutrophils % (0-10) % Lymphocytes % (Manual) (20-40) % Atypical Lymphs % % Monocytes % (Manual) (2-10) % Eosinophils % (Manual) (0.8-7.0) % Basophils % (Manual) (0.2-1.2) Platelet Estimate RBC Morph Comment Sodium (136-145) mEq/L Potassium (3.5-5.1) mEq/L Chloride (98-107) mEq/L Carbon Dioxide (21-32) mEq/L Anion Gap (5-15) BUN (7-18) mg/dL Creatinine (0.7-1.3) mg/dL Est Cr Clr Drug Dosing mL/min Estimated GFR (MDRD) (>60) mL/min BUN/Creatinine Ratio (14-18) Glucose (74-106) mg/dL POC Glucose 160 H (70-105) mg/dL Calcium (8.5-10.1) mg/dL Total Bilirubin (0.2-1.0) mg/dL AST (15-37) U/L ALT (16-63) U/L Alkaline Phosphatase (46-116) U/L Troponin I (0.00-0.056) ng/mL C-Reactive Protein (<1.0) mg/dL Total Protein (6.4-8.2) g/dl Albumin (3.4-5.0) g/dl Globulin gm/dL Albumin/Globulin Ratio (1-2) Lipase (73-393) U/L Urine Color Dark yellow (Yellow) Urine Appearance Clear (Clear) Urine pH 5.5 (5.0-8.0) Ur Specific [place] 1.025 (1.005-1.030) Urine Protein Trace H (Negative) Urine Glucose (UA) 2+ H (Negative) Urine Ketones Trace H (Negative) Urine Occult Blood Trace-lysed H (Negative) Urine Nitrite Negative (Negative) Urine Bilirubin 1+ H (Negative) Urine Urobilinogen 0.2 (0.2-1.0) Ur Leukocyte Esterase Negative (Negative) Urine RBC 0-5 (0-5) /hpf Urine WBC 0-5 (0-5) /hpf Ur Epithelial Cells Not seen (0-5) /hpf Urine Bacteria Not seen (FEW) /hpf Urine Mucus Not seen (FEW) /hpf Ethyl Alcohol (0.00) gm% 11/03/17 11/03/17 Range/Units 05:35 06:49 WBC (4.23-9.07) K/mm3 RBC (4.63-6.08) M/mm3 Hgb (13.7-17.5) gm/L Hct (40.1-51.0) % MCV (79.0-92.2) fl MCH (25.7-32.2) pg MCHC (32.2-35.5) g/dl RDW Std Deviation (35.1-43.9) fL Plt Count (163-337) K/mm3 MPV (9.4-12.3) fl Neut % (Auto) (34.0-67.9) % Lymph % (Auto) (21.8-53.1) % [place]key % (Auto) (5.3-12.2) % Eos % (Auto) (0.8-7.0) Baso % (Auto) (0.1-1.2) % Neut # (Auto) (1.78-5.38) K/mm3 Lymph # (Auto) (1.32-3.57) K/mm3 [place] # (Auto) (0.30-0.82) K/mm3 Eos # (Auto) (0.04-0.54) K/mm3 Baso # (Auto) (0.01-0.08) K/mm3 Neutrophils % (Manual) (40-60) % Band Neutrophils % (0-10) % Lymphocytes % (Manual) (20-40) % Atypical Lymphs % % Monocytes % (Manual) (2-10) % Eosinophils % (Manual) (0.8-7.0) % Basophils % (Manual) (0.2-1.2) Platelet Estimate RBC Morph Comment Sodium 134 L (136-145) mEq/L Potassium 3.7 (3.5-5.1) mEq/L Chloride 100 (98-107) mEq/L Carbon Dioxide 25 (21-32) mEq/L Anion Gap 12.7 (5-15) BUN 10 (7-18) mg/dL Creatinine 0.9 (0.7-1.3) mg/dL Est Cr Clr Drug Dosing 112.21 mL/min Estimated GFR (MDRD) > 60 (>60) mL/min BUN/Creatinine Ratio 11.1 L (14-18) Glucose 185 H (74-106) mg/dL POC Glucose 177 H (70-105) mg/dL Calcium 7.8 L (8.5-10.1) mg/dL Total Bilirubin 1.9 H (0.2-1.0) mg/dL AST 222 H (15-37) U/L ALT 478 H (16-63) U/L Alkaline Phosphatase 115 (46-116) U/L Troponin I (0.00-0.056) ng/mL C-Reactive Protein (<1.0) mg/dL Total Protein 6.4 (6.4-8.2) g/dl Albumin 3.4 (3.4-5.0) g/dl Globulin 3.0 gm/dL Albumin/Globulin Ratio 1.1 (1-2) Lipase 1300 H (73-393) U/L Urine Color (Yellow) Urine Appearance (Clear) Urine pH (5.0-8.0) Ur Specific [place] (1.005-1.030) Urine Protein (Negative) Urine Glucose (UA) (Negative) Urine Ketones (Negative) Urine Occult Blood (Negative) Urine Nitrite (Negative) Urine Bilirubin (Negative) Urine Urobilinogen (0.2-1.0) Ur Leukocyte Esterase (Negative) Urine RBC (0-5) /hpf Urine WBC (0-5) /hpf Ur Epithelial Cells (0-5) /hpf Urine Bacteria (FEW) /hpf Urine Mucus (FEW) /hpf Ethyl Alcohol (0.00) gm% Med Orders - Current: Current Medications Acetaminophen (Tylenol) 650 mg PO Q4H PRN PRN Reason: Pain (Mild 1-3)/fever Albuterol/Ipratropium (Duoneb 3.0-0.5 Mg/3 Ml) 3 ml NEB Q4H PRN PRN Reason: Shortness Of Breath/wheezing Bisacodyl (Dulcolax) 5 mg PO DAILY PRN PRN Reason: Constipation Citalopram Hydrobromide (Celexa) 40 mg PO DAILY [place] Docusate Sodium (Colace) 100 mg PO BID PRN PRN Reason: Constipation Hydralazine HCl (Apresoline) 20 mg IVPUSH Q4H PRN PRN Reason: Hypertension Last Admin: 11/03/17 09:02 Dose: 20 mg Hydromorphone HCl (Dilaudid) 0.5 mg IVPUSH Q2H PRN PRN Reason: Pain (severe 7-10) Last Admin: 11/03/17 08:55 Dose: 0.5 mg Sodium Chloride (Normal Saline) 1,000 mls @ 125 mls/hr IV ASDIRECTED [facility] Last Admin: 11/03/17 02:45 Dose: 125 mls/hr Insulin Aspart (Novolog) 0 unit SUBCUT QIDACANDBED [facility]; Protocol Last Admin: 11/03/17 06:53 Dose: 1 unit Levothyroxine Sodium (Levothyroxine) 150 mcg PO DAILY [facility] Last Admin: 11/03/17 08:58 Dose: 150 mcg Lisinopril (Prinivil) 20 mg PO DAILY [facility] Magnesium Hydroxide (Milk Of Magnesia) 30 ml PO Q12H PRN PRN Reason: Constipation Mirtazapine (Remeron) 30 mg PO BEDTIME [facility] Last Admin: 11/02/17 20:46 Dose: 30 mg Nicotine (Habitrol) 7 mg TRDERM DAILY [facility] Last Admin: 11/02/17 20:03 Dose: Not Given Ondansetron HCl (Zofran Odt) 4 mg PO Q4H PRN PRN Reason: nausea, able to take PO Ondansetron HCl (Zofran) 4 mg IV Q4H PRN PRN Reason: Nausea/Vomiting Last Admin: 11/03/17 09:00 Dose: 4 mg Oxycodone HCl (Oxycodone) 5 mg PO Q4H PRN PRN Reason: Pain (moderate 4-6) Last Admin: 11/03/17 01:44 Dose: 5 mg Pantoprazole Sodium (Protonix) 40 mg PO DAILY@0700 [facility] Last Admin: 11/03/17 06:54 Dose: 40 mg Polyethylene Glycol (Miralax) 17 gm PO DAILY PRN PRN Reason: Constipation Senna/Docusate Sodium (Senna Plus) 1 tab PO BID PRN PRN Reason: Constipation Sodium Chloride (Saline Flush) 10 ml FLUSH ONETIME PRN PRN Reason: IV FLUSH Last Admin: 11/02/17 14:20 Dose: 10 ml Temazepam (Restoril) 7.5 mg PO BEDTIME PRN PRN Reason: Sleep Discontinued Medications Diatrizoate Meglum/Diatrizoate Sod (Gastrografin 37%) 90 ml PO ONETIME ONE Stop: 11/02/17 14:00 Last Admin: 11/02/17 14:19 Dose: 90 ml Fentanyl (Sublimaze) 100 mcg IVPUSH ONETIME ONE Stop: 11/02/17 12:56 Last Admin: 11/02/17 13:07 Dose: 100 mcg Fentanyl (Sublimaze) 50 mcg IVPUSH ONETIME ONE Stop: 11/02/17 14:09 Last Admin: 11/02/17 14:12 Dose: 50 mcg Hydromorphone HCl (Dilaudid) 1 mg IVPUSH ONETIME ONE Stop: 11/02/17 16:00 Last Admin: 11/02/17 16:08 Dose: 1 mg Hydromorphone HCl (Dilaudid) 1 mg IVPUSH ONETIME ONE Stop: 11/02/17 18:10 Last Admin: 11/02/17 18:19 Dose: 1 mg Sodium Chloride (Normal Saline) 1,000 mls @ 999 mls/hr IV ONETIME ONE Stop: 11/02/17 13:55 Last Admin: 11/02/17 13:06 Dose: 999 mls/hr Iopamidol (Isovue-300 (61%)) 125 ml IVPUSH ONETIME ONE Stop: 11/02/17 14:00 Last Admin: 11/02/17 14:19 Dose: 125 ml Metformin HCl (Glucophage) 500 mg PO DAILY [place] Ondansetron HCl (Zofran) 4 mg IVPUSH ONETIME ONE Stop: 11/02/17 16:02 Last Admin: 11/02/17 16:06 Dose: 4 mg Ondansetron HCl (Zofran) Confirm Administered Dose 4 mg .ROUTE .STK-MED ONE Stop: 11/02/17 16:04 Last Admin: 11/02/17 16:09 Dose: Not Given Ondansetron HCl (Zofran) 4 mg IVPUSH ONETIME ONE Stop: 11/02/17 18:10 Last Admin: 11/02/17 18:19 Dose: 4 mg Pantoprazole Sodium (Protonix Iv) 40 mg IVPUSH ONETIME ONE Stop: 11/02/17 12:58 Last Admin: 11/02/17 13:09 Dose: 40 mg - Exam Quality Assessment: Supplemental Oxygen, DVT Prophylaxis General: Alert, Oriented, Cooperative, No Acute Distress HEENT: Pupils Equal, Pupils Reactive, EOMI Neck: Trachea Midline, No JVD Lungs: Normal Respiratory Effort Cardiovascular: Regular Rate, Regular Rhythm GI/Abdominal Exam: Normal Bowel Sounds, Soft, Non-Tender, No Organomegaly, No Distention (Male) Exam: Deferred Back Exam: Normal Inspection Extremities: Normal Inspection Skin: Warm Neurological: No New Focal Deficit Psy/Mental Status: Alert, Normal Affect, Normal Mood - Problem List Review Problem List Initiated/Reviewed/Updated: Yes - Plan Plan:: A/P Acute: Lipase elevation * Risk factors: previous episodes of pancreatitis, suspected alcohol abuse * Lipase 1090 in ED * CT of abdomen/pelvis with contrast read as severe fatty infiltration within the liver, small gallstones within the gallbladder * Suspect pancreatitis with patient's previous episodes of pancreatitis and alcohol use 2 days ago * [place]'s criteria: 2 points, Severe pancreatitis unlikely with 1% predicted mortality at this time; however, with patient's hx of prior pancreatitis, ICU admission is warranted * Abdominal ultrasound also ordered and read is pending * Received IVF NS bolus in ED; will order NS at 125 ml/hr * Pain management as follows: * Dilaudid 0.5 mg IV q 2 hr prn severe pain * Oxycodone 5 mg po q 4 hr prn moderate pain * Normal white count * NPO diet except for meds/ice chips * Consult to dietitian for low fat/diabetic diet education * GI follow-up after discharge Hyperglycemia * 381 in ED * Patient is a type 2 diabetic * Takes Metformin 500 mg po daily --> CT performed today, will hold metformin x 48 hours * Reports he has not had his Hgb A1c checked in over 1 year and states that at that time it was 5.1 or 5.9 * Will order AccuChecks QID and low dose SSI * Monitor Hypertension * BP elevated in ED --> likely related to pain * Patient reports his lisinopril was increased to 20 mg from 10 mg daily last week, will continue during admission * Hydralazine 20 mg IV q 4 hr if BP >140/90 * Monitor Hyponatremia * Na 134 in ED * Likely related to poor intakes * Monitor Suspected alcohol abuse * Patient reports history of heavy alcohol use in his past but declines this being an issue currently; per records, patient was in ED March 2017 with blood alcohol level of 0.22 * He declined speaking with someone regarding substance abuse * CIWAA ordered Chronic: Previous episodes of pancreatitis Hypertension Anxiety Type 2 Diabetes Hypothyroidism Plan: Admitted from ED to ICU CIWAA Nicotine patch Other orders as indicated above CM/SW for discharge planning Routine AM labs Continue home meds NPO diet except for meds/ice chips DVT Prophylaxis: GI Prophylaxis: Omeprazole Code Status: DNR/DNI PCP: Dr. Rubio Bhardwaj Jr
[2017-11-03] MEDS ORDERED: Acetaminophen/HYDROcodone 325-5 MG Tab PO PRN (10:42)
[2017-11-03] MEDS ORDERED: HYDROmorphone 0.5 MG/0.5 ML SYRINGE IVPUSH PRN (10:43)
[2017-11-03] MEDS ORDERED: Temazepam 15 MG Cap PO PRN (10:44)
[2017-11-03] MEDS: Ketorolac 30 MG/ML SDV IVPUSH SCH ×3 (11:05→22:04)
[2017-11-03] MEDS: Famotidine 20 MG/2 ML SDV IVPUSH SCH ×2 (11:05→20:06)
[2017-11-03] MEDS ORDERED: Magnesium Sulfate/Water 4 GM in Premix Bag 1 BAG IV ONE (12:45)
[2017-11-03] MEDS: Mirtazapine 30 MG Tab PO SCH (20:06)
[2017-11-04] MEDS: Sodium Chloride 0.9% 1,000 ML IV SCH ×2 (03:03→11:02)
[2017-11-04] MEDS: Ketorolac 30 MG/ML SDV IVPUSH SCH ×2 (04:11→10:11)
[2017-11-04] MEDS: hydrALAZINE 20 MG/ML SDV IVPUSH PRN (06:08)
[2017-11-04] MEDS: Insulin Aspart 100 Units/ML 3 ML Pen SUBCUT SCH ×2 (06:11→11:07)
[2017-11-04] MEDS ORDERED: Acetaminophen 325 MG Tab PO PRN (08:02)
[2017-11-04] MEDS: Levothyroxine 150 MCG Tab PO SCH (08:15)
[2017-11-04] MEDS: Lisinopril 20 MG Tab PO SCH (08:16)
[2017-11-04] MEDS: Famotidine 20 MG/2 ML SDV IVPUSH SCH (08:16)
[2017-11-04] MEDS: Citalopram 20 MG Tab PO SCH (08:18)
[2017-11-04] MEDS: Nicotine 7 MG/24 Hr Patch TRDERM SCH (08:18)
--- NOTE | 2017-11-04 09:52 | PCM.PN ---
- General Info Date of Service: 11/04/17 Admission Dx/Problem (Free Text): Admission Diagnosis/Problem Admission Diagnosis/Problem Pancreatitis Subjective Update: Follow Up Functional Status: Reports: Pain Controlled, Ambulating, Urinating. Denies: New Symptoms - Patient Data Vitals - Most Recent: Last Vital Signs Temp 36.9 C 11/04/17 08:00 Pulse 91 11/04/17 04:00 Resp 18 11/04/17 08:00 BP 148/91 H 11/04/17 08:16 Pulse Ox 94 L 11/04/17 08:00 Weight - Most Recent: 124.1 kg I&O - Last 24 Hours: Intake & Output 11/03/17 11/04/17 11/04/17 22:59 06:59 14:59 Intake Total 2525 1931 Output Total 100 Balance 2425 1931 Lab Results Last 24 Hours: Laboratory Results - last 24 hr 11/03/17 11/03/17 11/03/17 Range/Units 05:37 11:15 16:42 WBC (4.23-9.07) K/mm3 RBC (4.63-6.08) M/mm3 Hgb (13.7-17.5) gm/L Hct (40.1-51.0) % MCV (79.0-92.2) fl MCH (25.7-32.2) pg MCHC (32.2-35.5) g/dl RDW Std Deviation (35.1-43.9) fL Plt Count (163-337) K/mm3 MPV (9.4-12.3) fl Neut % (Auto) (34.0-67.9) % Lymph % (Auto) (21.8-53.1) % [place] % (Auto) (5.3-12.2) % Eos % (Auto) (0.8-7.0) Baso % (Auto) (0.1-1.2) % Neut # (Auto) (1.78-5.38) K/mm3 Lymph # (Auto) (1.32-3.57) K/mm3 [place] # (Auto) (0.30-0.82) K/mm3 Eos # (Auto) (0.04-0.54) K/mm3 Baso # (Auto) (0.01-0.08) K/mm3 Sodium (136-145) mEq/L Potassium (3.5-5.1) mEq/L Chloride (98-107) mEq/L Carbon Dioxide (21-32) mEq/L Anion Gap (5-15) BUN (7-18) mg/dL Creatinine (0.7-1.3) mg/dL Est Cr Clr Drug Dosing mL/min Estimated GFR (MDRD) (>60) mL/min BUN/Creatinine Ratio (14-18) Glucose (74-106) mg/dL POC Glucose 167 H 183 H (70-105) mg/dL Calcium (8.5-10.1) mg/dL Magnesium 1.5 L (1.8-2.4) mg/dl Total Bilirubin (0.2-1.0) mg/dL AST (15-37) U/L ALT (16-63) U/L Alkaline Phosphatase (46-116) U/L Total Protein (6.4-8.2) g/dl Albumin (3.4-5.0) g/dl Globulin gm/dL Albumin/Globulin Ratio (1-2) Lipase (73-393) U/L 11/03/17 11/04/17 11/04/17 Range/Units 22:03 06:01 06:03 WBC 6.11 (4.23-9.07) K/mm3 RBC 4.22 L (4.63-6.08) M/mm3 Hgb 13.3 L (13.7-17.5) gm/L Hct 40.1 (40.1-51.0) % MCV 95.0 H (79.0-92.2) fl MCH 31.5 (25.7-32.2) pg MCHC 33.2 (32.2-35.5) g/dl RDW Std Deviation 46.0 H (35.1-43.9) fL Plt Count 166 (163-337) K/mm3 MPV 9.0 L (9.4-12.3) fl Neut % (Auto) 67.3 (34.0-67.9) % Lymph % (Auto) 19.8 L (21.8-53.1) % [place] % (Auto) 8.5 (5.3-12.2) % Eos % (Auto) 3.9 (0.8-7.0) Baso % (Auto) 0.2 (0.1-1.2) % Neut # (Auto) 4.11 (1.78-5.38) K/mm3 Lymph # (Auto) 1.21 L (1.32-3.57) K/mm3 [place] # (Auto) 0.52 (0.30-0.82) K/mm3 Eos # (Auto) 0.24 (0.04-0.54) K/mm3 Baso # (Auto) 0.01 (0.01-0.08) K/mm3 Sodium (136-145) mEq/L Potassium (3.5-5.1) mEq/L Chloride (98-107) mEq/L Carbon Dioxide (21-32) mEq/L Anion Gap (5-15) BUN (7-18) mg/dL Creatinine (0.7-1.3) mg/dL Est Cr Clr Drug Dosing mL/min Estimated GFR (MDRD) (>60) mL/min BUN/Creatinine Ratio (14-18) Glucose (74-106) mg/dL POC Glucose 193 H 154 H (70-105) mg/dL Calcium (8.5-10.1) mg/dL Magnesium (1.8-2.4) mg/dl Total Bilirubin (0.2-1.0) mg/dL AST (15-37) U/L ALT (16-63) U/L Alkaline Phosphatase (46-116) U/L Total Protein (6.4-8.2) g/dl Albumin (3.4-5.0) g/dl Globulin gm/dL Albumin/Globulin Ratio (1-2) Lipase (73-393) U/L 11/04/17 11/04/17 Range/Units 06:03 06:03 WBC (4.23-9.07) K/mm3 RBC (4.63-6.08) M/mm3 Hgb (13.7-17.5) gm/L Hct (40.1-51.0) % MCV (79.0-92.2) fl MCH (25.7-32.2) pg MCHC (32.2-35.5) g/dl RDW Std Deviation (35.1-43.9) fL Plt Count (163-337) K/mm3 MPV (9.4-12.3) fl Neut % (Auto) (34.0-67.9) % Lymph % (Auto) (21.8-53.1) % [place] % (Auto) (5.3-12.2) % Eos % (Auto) (0.8-7.0) Baso % (Auto) (0.1-1.2) % Neut # (Auto) (1.78-5.38) K/mm3 Lymph # (Auto) (1.32-3.57) K/mm3 [place] # (Auto) (0.30-0.82) K/mm3 Eos # (Auto) (0.04-0.54) K/mm3 Baso # (Auto) (0.01-0.08) K/mm3 Sodium 138 (136-145) mEq/L Potassium 4.0 (3.5-5.1) mEq/L Chloride 106 (98-107) mEq/L Carbon Dioxide 25 (21-32) mEq/L Anion Gap 11.0 (5-15) BUN 11 (7-18) mg/dL Creatinine 0.8 (0.7-1.3) mg/dL Est Cr Clr Drug Dosing 126.23 mL/min Estimated GFR (MDRD) > 60 (>60) mL/min BUN/Creatinine Ratio 13.8 L (14-18) Glucose 164 H (74-106) mg/dL POC Glucose (70-105) mg/dL Calcium 7.4 L (8.5-10.1) mg/dL Magnesium 2.0 (1.8-2.4) mg/dl Total Bilirubin 1.9 H (0.2-1.0) mg/dL AST 197 H (15-37) U/L ALT 346 H (16-63) U/L Alkaline Phosphatase 114 (46-116) U/L Total Protein 5.9 L (6.4-8.2) g/dl Albumin 2.8 L (3.4-5.0) g/dl Globulin 3.1 gm/dL Albumin/Globulin Ratio 0.9 L (1-2) Lipase 850 H (73-393) U/L Med Orders - Current: Current Medications Acetaminophen (Tylenol) 650 mg PO Q6H PRN PRN Reason: Headache/Pain Last Admin: 11/04/17 08:13 Dose: 650 mg Albuterol/Ipratropium (Duoneb 3.0-0.5 Mg/3 Ml) 3 ml NEB Q4H PRN PRN Reason: Shortness Of Breath/wheezing Bisacodyl (Dulcolax) 5 mg PO DAILY PRN PRN Reason: Constipation Citalopram Hydrobromide (Celexa) 40 mg PO DAILY [facility] Last Admin: 11/04/17 08:18 Dose: Not Given Docusate Sodium (Colace) 100 mg PO BID PRN PRN Reason: Constipation Famotidine (Pepcid) 20 mg IVPUSH BID [facility] Last Admin: 11/04/17 08:16 Dose: 20 mg Hydralazine HCl (Apresoline) 20 mg IVPUSH Q4H PRN PRN Reason: Hypertension Last Admin: 11/04/17 06:08 Dose: 20 mg Sodium Chloride (Normal Saline) 1,000 mls @ 125 mls/hr IV ASDIRECTED [facility] Last Admin: 11/04/17 03:03 Dose: 125 mls/hr Insulin Aspart (Novolog) 0 unit SUBCUT QIDACANDBED [facility]; Protocol Last Admin: 11/04/17 06:11 Dose: Not Given Ketorolac Tromethamine (Toradol) 30 mg IVPUSH Q6H [facility] Stop: 11/05/17 05:01 Last Admin: 11/04/17 04:11 Dose: 30 mg Levothyroxine Sodium (Levothyroxine) 150 mcg PO DAILY [facility] Last Admin: 11/04/17 08:15 Dose: 150 mcg Lisinopril (Prinivil) 20 mg PO DAILY [facility] Last Admin: 11/04/17 08:16 Dose: 20 mg Magnesium Hydroxide (Milk Of Magnesia) 30 ml PO Q12H PRN PRN Reason: Constipation Mirtazapine (Remeron) 30 mg PO BEDTIME [facility] Last Admin: 11/03/17 20:06 Dose: 30 mg Nicotine (Habitrol) 7 mg TRDERM DAILY [facility] Last Admin: 11/04/17 08:18 Dose: Not Given Ondansetron HCl (Zofran Odt) 4 mg PO Q4H PRN PRN Reason: nausea, able to take PO Ondansetron HCl (Zofran) 4 mg IV Q4H PRN PRN Reason: Nausea/Vomiting Last Admin: 11/03/17 09:00 Dose: 4 mg Polyethylene Glycol (Miralax) 17 gm PO DAILY PRN PRN Reason: Constipation Senna/Docusate Sodium (Senna Plus) 1 tab PO BID PRN PRN Reason: Constipation Sodium Chloride (Saline Flush) 10 ml FLUSH ONETIME PRN PRN Reason: IV FLUSH Last Admin: 11/02/17 14:20 Dose: 10 ml Temazepam (Restoril) 15 mg PO BEDTIME PRN PRN Reason: Sleep Last Admin: 11/03/17 20:06 Dose: 15 mg Discontinued Medications Acetaminophen (Tylenol) 650 mg PO Q4H PRN PRN Reason: Pain (Mild 1-3)/fever Hydrocodone Bitart/Acetaminophen ([place] 325-5 Mg) 1 tab PO Q8H PRN PRN Reason: Pain (moderate 4-6) Last Admin: 11/03/17 12:07 Dose: 1 tab Diatrizoate Meglum/Diatrizoate Sod (Gastrografin 37%) 90 ml PO ONETIME ONE Stop: 11/02/17 14:00 Last Admin: 11/02/17 14:19 Dose: 90 ml Fentanyl (Sublimaze) 100 mcg IVPUSH ONETIME ONE Stop: 11/02/17 12:56 Last Admin: 11/02/17 13:07 Dose: 100 mcg Fentanyl (Sublimaze) 50 mcg IVPUSH ONETIME ONE Stop: 11/02/17 14:09 Last Admin: 11/02/17 14:12 Dose: 50 mcg Hydromorphone HCl (Dilaudid) 1 mg IVPUSH ONETIME ONE Stop: 11/02/17 16:00 Last Admin: 11/02/17 16:08 Dose: 1 mg Hydromorphone HCl (Dilaudid) 1 mg IVPUSH ONETIME ONE Stop: 11/02/17 18:10 Last Admin: 11/02/17 18:19 Dose: 1 mg Hydromorphone HCl (Dilaudid) 0.5 mg IVPUSH Q2H PRN PRN Reason: Pain (severe 7-10) Last Admin: 11/03/17 08:55 Dose: 0.5 mg Hydromorphone HCl (Dilaudid) 0.5 mg IVPUSH Q6H PRN PRN Reason: Pain (severe 7-10) Last Admin: 11/03/17 11:05 Dose: 0.5 mg Sodium Chloride (Normal Saline) 1,000 mls @ 999 mls/hr IV ONETIME ONE Stop: 11/02/17 13:55 Last Admin: 11/02/17 13:06 Dose: 999 mls/hr Magnesium Sulfate 4 gm/ Premix 100 mls @ 50 mls/hr IV ONETIME ONE Stop: 11/03/17 14:44 Last Admin: 11/03/17 13:01 Dose: 50 mls/hr Iopamidol (Isovue-300 (61%)) 125 ml IVPUSH ONETIME ONE Stop: 11/02/17 14:00 Last Admin: 11/02/17 14:19 Dose: 125 ml Metformin HCl (Glucophage) 500 mg PO DAILY [facility] Ondansetron HCl (Zofran) 4 mg IVPUSH ONETIME ONE Stop: 11/02/17 16:02 Last Admin: 11/02/17 16:06 Dose: 4 mg Ondansetron HCl (Zofran) Confirm Administered Dose 4 mg .ROUTE .STK-MED ONE Stop: 11/02/17 16:04 Last Admin: 11/02/17 16:09 Dose: Not Given Ondansetron HCl (Zofran) 4 mg IVPUSH ONETIME ONE Stop: 11/02/17 18:10 Last Admin: 11/02/17 18:19 Dose: 4 mg Oxycodone HCl (Oxycodone) 5 mg PO Q4H PRN PRN Reason: Pain (moderate 4-6) Last Admin: 11/03/17 01:44 Dose: 5 mg Pantoprazole Sodium (Protonix Iv) 40 mg IVPUSH ONETIME ONE Stop: 11/02/17 12:58 Last Admin: 11/02/17 13:09 Dose: 40 mg Pantoprazole Sodium (Protonix) 40 mg PO DAILY@0700 [facility] Last Admin: 11/03/17 06:54 Dose: 40 mg Temazepam (Restoril) 7.5 mg PO BEDTIME PRN PRN Reason: Sleep - Plan Plan:: A/P Acute: Lipase elevation * Risk factors: previous episodes of pancreatitis, suspected alcohol abuse * Lipase 1090 in ED * CT of abdomen/pelvis with contrast read as severe fatty infiltration within the liver, small gallstones within the gallbladder * Suspect pancreatitis with patient's previous episodes of pancreatitis and alcohol use 2 days ago * Windsor's criteria: 2 points, Severe pancreatitis unlikely with 1% predicted mortality at this time; however, with patient's hx of prior pancreatitis, ICU admission is warranted * Abdominal ultrasound also ordered and read is pending * Received IVF NS bolus in ED; will order NS at 125 ml/hr * Pain management as follows: * Dilaudid 0.5 mg IV q 2 hr prn severe pain * Oxycodone 5 mg po q 4 hr prn moderate pain * Normal white count * NPO diet except for meds/ice chips * Consult to dietitian for low fat/diabetic diet education * GI follow-up after discharge Hyperglycemia * 381 in ED * Patient is a type 2 diabetic * Takes Metformin 500 mg po daily --> CT performed today, will hold metformin x 48 hours * Reports he has not had his Hgb A1c checked in over 1 year and states that at that time it was 5.1 or 5.9 * Will order AccuChecks QID and low dose SSI * Monitor Hypertension * BP elevated in ED --> likely related to pain * Patient reports his lisinopril was increased to 20 mg from 10 mg daily last week, will continue during admission * Hydralazine 20 mg IV q 4 hr if BP >140/90 * Monitor Hyponatremia * Na 134 in ED * Likely related to poor intakes * Monitor Suspected alcohol abuse * Patient reports history of heavy alcohol use in his past but declines this being an issue currently; per records, patient was in ED March 2017 with blood alcohol level of 0.22 * He declined speaking with someone regarding substance abuse * CIWAA ordered Chronic: Previous episodes of pancreatitis Hypertension Anxiety Type 2 Diabetes Hypothyroidism Plan: Admitted from ED to ICU CIWAA Nicotine patch Other orders as indicated above CM/SW for discharge planning Routine AM labs Continue home meds NPO diet except for meds/ice chips DVT Prophylaxis: GI Prophylaxis: Omeprazole Code Status: DNR/DNI PCP: Dr. Rubio Bhardwaj, Jr
--- NOTE | 2017-11-05 10:52 | PCM.DCSUM1 ---
Discharge Summary - Hospital Course Diagnosis: Stroke: No - Discharge Data Discharge Date: 11/04/17 Discharge Disposition: Home, Self-Care 01 Condition: Good - Discharge Diagnosis/Problem(s) (1) Gallstone pancreatitis SNOMED Code(s): 52672724 ICD Code: K85.10 - BILIARY ACUTE PANCREATITIS WITHOUT NECROSIS OR INFECTION Status: Acute (2) Fatty liver, alcoholic SNOMED Code(s): 65943766 ICD Code: K70.0 - ALCOHOLIC FATTY LIVER Status: Acute (3) Fatty liver, alcoholic SNOMED Code(s): 52881544 ICD Code: K70.0 - ALCOHOLIC FATTY LIVER Status: Acute (4) Diabetes mellitus SNOMED Code(s): 21200289 ICD Code: E11.9 - TYPE 2 DIABETES MELLITUS WITHOUT COMPLICATIONS Status: Acute Qualifiers: Diabetes mellitus type: type 2 Diabetes mellitus terminal carman insulin use: without group home use Diabetes mellitus complication status: without complication Qualified Code(s): E11.9 - Type 2 diabetes mellitus without complications (5) Dyslipidemia SNOMED Code(s): 412492260 ICD Code: E78.5 - HYPERLIPIDEMIA, UNSPECIFIED Status: Acute (6) HTN (hypertension) SNOMED Code(s): 46567390 ICD Code: I10 - ESSENTIAL (PRIMARY) HYPERTENSION Status: Acute (7) Alcoholic gastritis SNOMED Code(s): 1133626 ICD Code: K29.20 - ALCOHOLIC GASTRITIS WITHOUT BLEEDING Status: Acute Qualifiers: Chronicity: acute Gastritis bleeding: without bleeding Qualified Code(s) : K29.20 - Alcoholic gastritis without bleeding (8) Alcohol abuse SNOMED Code(s): 15825695 ICD Code: F10.10 - ALCOHOL ABUSE, UNCOMPLICATED Status: Acute (9) Obesity (BMI 30-39.9) SNOMED Code(s): 586267226, 222657260 ICD Code: E66.9 - OBESITY, UNSPECIFIED Status: Chronic - Patient Summary/Data Consults: Consultations 11/02/17 18:30 Consult to Case Management [CONS] Routine Consult to Maintenance Coordinator [CONS] Routine Consult to Substation Electrician Supervisor [CONS] Routine - Patient Instructions Diet: Heart Healthy Diet, Usual Diet as Tolerated, Diabetic Diet, Weight Loss Diet Activity: As Tolerated Driving: May Drive Today Showering/Bathing: May Shower Notify Provider of: Fever, Increased Pain, Swelling and Redness, Nausea and/or Vomiting Other/Special Instructions: - Please take all new medications as directed. - Resume all home medications except Metformin. - Start Meformin 1 tab po BID tonight. - Please follow lifestyle modifications as discussed at bedside prior to discharge: eat properly, exercise regularly and lose weight. - Continue to routinely check your blood sugar as you normally do. - Stop or cut down on you alcohol intake. - Call or follow up with your PCP for any questions or concerns after discharge. - Follow up with your PCP in 1-2 weeks. - Come back or seek immediate care should your symptoms persist or get worse - Discharge Plan Prescriptions/Med Rec: Aspirin 81 mg PO DAILY #30 tab.chew atorvaSTATin [Lipitor] 20 mg PO BEDTIME #30 tab Home Medications: Home Meds Levothyroxine 150 mcg PO DAILY 03/30/17 [History] Lisinopril 20 mg PO DAILY 03/30/17 [History] Mirtazapine [Remeron] 30 mg PO DAILY 03/30/17 [History] metFORMIN [Glucophage XR] 500 mg PO DAILY 03/30/17 [History] Escitalopram [Lexapro] 20 mg PO DAILY 11/02/17 [History] Omeprazole 20 mg PO DAILY 11/02/17 [History] Aspirin 81 mg PO DAILY #30 tab.chew 11/04/17 [Rx] atorvaSTATin [Lipitor] 20 mg PO BEDTIME #30 tab 11/04/17 [Rx] Patient Handouts: Alcohol Use Disorder, Cholesterol, [id number], Gastritis, Adult, [id number], Acute Pancreatitis, [id number], DASH Eating Plan, Hypertension, Brie-jh-Khoy, Obesity, Adult, [id number] Referrals: Rubio Bhardwaj Jr, MD [Primary Care Provider] - - Patient Data Vitals - Most Recent: Last Vital Signs Temp 36.6 C 11/04/17 12:00 Pulse 93 11/04/17 12:00 Resp 18 11/04/17 12:00 BP 140/83 11/04/17 12:00 Pulse Ox 98 11/04/17 12:00 Weight - Most Recent: 124.1 kg I&O - Last 24 hours: Intake & Output 11/04/17 11/05/17 11/05/17 22:59 06:59 14:59 Intake Total 1235 Balance 1235 Lab Results - Last 24 hrs: Laboratory Results - last 24 hr 11/04/17 11/04/17 Range/Units 11:05 11:20 POC Glucose 170 H (70-105) mg/dL Ur Random Microalbumin 12.4 (1.3-20.0) mg/L Med Orders - Current: Current Medications Discontinued Medications Acetaminophen (Tylenol) 650 mg PO Q4H PRN PRN Reason: Pain (Mild 1-3)/fever Acetaminophen (Tylenol) 650 mg PO Q6H PRN PRN Reason: Headache/Pain Last Admin: 11/04/17 08:13 Dose: 650 mg Hydrocodone Bitart/Acetaminophen ([place] 325-5 Mg) 1 tab PO Q8H PRN PRN Reason: Pain (moderate 4-6) Last Admin: 11/03/17 12:07 Dose: 1 tab Albuterol/Ipratropium (Duoneb 3.0-0.5 Mg/3 Ml) 3 ml NEB Q4H PRN PRN Reason: Shortness Of Breath/wheezing Bisacodyl (Dulcolax) 5 mg PO DAILY PRN PRN Reason: Constipation Citalopram Hydrobromide (Celexa) 40 mg PO DAILY [facility] Last Admin: 11/04/17 08:18 Dose: Not Given Diatrizoate Meglum/Diatrizoate Sod (Gastrografin 37%) 90 ml PO ONETIME ONE Stop: 11/02/17 14:00 Last Admin: 11/02/17 14:19 Dose: 90 ml Docusate Sodium (Colace) 100 mg PO BID PRN PRN Reason: Constipation Famotidine (Pepcid) 20 mg IVPUSH BID [facility] Last Admin: 11/04/17 08:16 Dose: 20 mg Fentanyl (Sublimaze) 100 mcg IVPUSH ONETIME ONE Stop: 11/02/17 12:56 Last Admin: 11/02/17 13:07 Dose: 100 mcg Fentanyl (Sublimaze) 50 mcg IVPUSH ONETIME ONE Stop: 11/02/17 14:09 Last Admin: 11/02/17 14:12 Dose: 50 mcg Hydralazine HCl (Apresoline) 20 mg IVPUSH Q4H PRN PRN Reason: Hypertension Last Admin: 11/04/17 06:08 Dose: 20 mg Hydromorphone HCl (Dilaudid) 1 mg IVPUSH ONETIME ONE Stop: 11/02/17 16:00 Last Admin: 11/02/17 16:08 Dose: 1 mg Hydromorphone HCl (Dilaudid) 1 mg IVPUSH ONETIME ONE Stop: 11/02/17 18:10 Last Admin: 11/02/17 18:19 Dose: 1 mg Hydromorphone HCl (Dilaudid) 0.5 mg IVPUSH Q2H PRN PRN Reason: Pain (severe 7-10) Last Admin: 11/03/17 08:55 Dose: 0.5 mg Hydromorphone HCl (Dilaudid) 0.5 mg IVPUSH Q6H PRN PRN Reason: Pain (severe 7-10) Last Admin: 11/03/17 11:05 Dose: 0.5 mg Sodium Chloride (Normal Saline) 1,000 mls @ 999 mls/hr IV ONETIME ONE Stop: 11/02/17 13:55 Last Admin: 11/02/17 13:06 Dose: 999 mls/hr Sodium Chloride (Normal Saline) 1,000 mls @ 125 mls/hr IV ASDIRECTED [facility] Last Admin: 11/04/17 11:02 Dose: 125 mls/hr Magnesium Sulfate 4 gm/ Premix 100 mls @ 50 mls/hr IV ONETIME ONE Stop: 11/03/17 14:44 Last Admin: 11/03/17 13:01 Dose: 50 mls/hr Insulin Aspart (Novolog) 0 unit SUBCUT QIDACANDBED [facility]; Protocol Last Admin: 11/04/17 11:07 Dose: 1 unit Iopamidol (Isovue-300 (61%)) 125 ml IVPUSH ONETIME ONE Stop: 11/02/17 14:00 Last Admin: 11/02/17 14:19 Dose: 125 ml Ketorolac Tromethamine (Toradol) 30 mg IVPUSH Q6H [facility] Stop: 11/05/17 05:01 Last Admin: 11/04/17 10:11 Dose: 30 mg Levothyroxine Sodium (Levothyroxine) 150 mcg PO DAILY [facility] Last Admin: 11/04/17 08:15 Dose: 150 mcg Lisinopril (Prinivil) 20 mg PO DAILY [facility] Last Admin: 11/04/17 08:16 Dose: 20 mg Magnesium Hydroxide (Milk Of Magnesia) 30 ml PO Q12H PRN PRN Reason: Constipation Metformin HCl (Glucophage) 500 mg PO DAILY [facility] Mirtazapine (Remeron) 30 mg PO BEDTIME [facility] Last Admin: 11/03/17 20:06 Dose: 30 mg Nicotine (Habitrol) 7 mg TRDERM DAILY [facility] Last Admin: 11/04/17 08:18 Dose: Not Given Ondansetron HCl (Zofran) 4 mg IVPUSH ONETIME ONE Stop: 11/02/17 16:02 Last Admin: 11/02/17 16:06 Dose: 4 mg Ondansetron HCl (Zofran) Confirm Administered Dose 4 mg .ROUTE .STK-MED ONE Stop: 11/02/17 16:04 Last Admin: 11/02/17 16:09 Dose: Not Given Ondansetron HCl (Zofran) 4 mg IVPUSH ONETIME ONE Stop: 11/02/17 18:10 Last Admin: 11/02/17 18:19 Dose: 4 mg Ondansetron HCl (Zofran Odt) 4 mg PO Q4H PRN PRN Reason: nausea, able to take PO Ondansetron HCl (Zofran) 4 mg IV Q4H PRN PRN Reason: Nausea/Vomiting Last Admin: 11/03/17 09:00 Dose: 4 mg Oxycodone HCl (Oxycodone) 5 mg PO Q4H PRN PRN Reason: Pain (moderate 4-6) Last Admin: 11/03/17 01:44 Dose: 5 mg Pantoprazole Sodium (Protonix Iv) 40 mg IVPUSH ONETIME ONE Stop: 11/02/17 12:58 Last Admin: 11/02/17 13:09 Dose: 40 mg Pantoprazole Sodium (Protonix) 40 mg PO DAILY@0700 [facility] Last Admin: 11/03/17 06:54 Dose: 40 mg Polyethylene Glycol (Miralax) 17 gm PO DAILY PRN PRN Reason: Constipation Senna/Docusate Sodium (Senna Plus) 1 tab PO BID PRN PRN Reason: Constipation Sodium Chloride (Saline Flush) 10 ml FLUSH ONETIME PRN PRN Reason: IV FLUSH Last Admin: 11/02/17 14:20 Dose: 10 ml Temazepam (Restoril) 7.5 mg PO BEDTIME PRN PRN Reason: Sleep Temazepam (Restoril) 15 mg PO BEDTIME PRN PRN Reason: Sleep Last Admin: 11/03/17 20:06 Dose: 15 mg
--- NOTE | 2017-11-05 11:15 | CR ---
Chest: Portable view of the chest was obtained. Comparison: Prior chest x-ray of 05/08/11. Heart size and mediastinum are within normal limits for portable technique. Lungs are clear without acute parenchymal densities. Bony structures are grossly intact. Impression: 1. Nothing acute is seen on portable chest x-ray. Diagnostic code #2
--- NOTE | 2017-11-05 11:15 | US ---
Limited abdominal ultrasound: Multiple real-time images of the upper right abdomen were obtained. Comparison: No prior abdominal ultrasound. Prior CT exam performed earlier on the same day (12:57 PM). Findings: Liver is diffusely echogenic compatible with fatty infiltration. No focal abnormality is appreciated. Gallbladder shows several small gallstones. This correlates to previous CT exam. No gallbladder wall thickening is seen. Common bile duct measures at the upper limits of normal at 7 mm. Right kidney shows no hydronephrosis or mass as a length of 12.6 cm. Pancreas not well-seen due to bowel gas. Portal vein shows normal hepatopedal flow. Impression: 1. Diffuse fatty infiltration within the liver. 2. Gallstones without gallbladder wall thickening. Common bile duct measures at the upper limits of normal at 7 mm. Diagnostic code #3 I agree with preliminary report from [facility], finalized at 11/02/17, 6:07 PM Central Time
== END 2017-11-04 14:55 | disposition home or self-care (01) | DRG 439 ==
LOC: JD.ED 12:38 → SUPCPDRO 12:38 → JD.ICU 18:08
PROVIDERS: ADMIT Internal Medicine Cardiovascular Disease; ATTEND Internal Medicine Cardiovascular Disease
DX: K85.10 Biliary acute pancreatitis without necrosis or infection (principal); E87.1 Hypo-osmolality and hyponatremia; K70.0 Alcoholic fatty liver; E78.5 Hyperlipidemia, unspecified; I10 Essential (primary) hypertension; K29.20 Alcoholic gastritis without bleeding; F10.10 Alcohol abuse, uncomplicated; F41.9 Anxiety disorder, unspecified; E03.9 Hypothyroidism, unspecified; F17.200 Nicotine dependence, unspecified, uncomplicated; E11.65 Type 2 diabetes mellitus with hyperglycemia; E66.9 Obesity, unspecified; Z68.34 Body mass index [BMI] 34.0-34.9, adult; Z79.899 Other long term (current) drug therapy; Z79.84 Long term (current) use of oral hypoglycemic drugs; K57.90 Diverticulosis of intestine, part unspecified, without perforation or abscess without bleeding
CPT/HCPCS: 36415; 71045; 71045-26; 74177; 74177-26; 76705; 76705-26; 80053; 80061; 81001; 82044; 82962; 83036; 83690; 83735; 84484; 85007; 85025; 85027; 86140; 93005; 96361; 96374; 96375; 96376; 99285-25; A9270-GY; C9113; G0480; J0360; J1170; J1815-GY; J1885; J2405; J3010; J3475; J7040; J7050; Q9963; Q9967